=== PATIENT | male | born 1955 | race Caucasian/White ===

== ENCOUNTER → 2016-12-12 | Day surgery (SDC) | payer OTHER ==
[~2016-12-12] VITALS: Ht 177.8 cm; Wt 95.5 kg
[~2016-12-12] MED LIST: ADVA100A INH; CHLORHEXIDINE GLUCONATE 2 % 1 PACK (2 CLOTHS) TOPICAL PRN; DEXAMETHASONE SOD PHOS 4 MG/ML VIAL ONE; FAMOTIDINE 20 MG/2 ML VIAL ONE; FISH1000 PO; HYDR-3516 PO; HYDR-3580 PO; INSULIN HUMAN REGULAR 1,000 UNITS/10 ML VIAL SQ PRN; LACTATED RINGER'S 1000 ML IV PRN; LISI-519 PO; LISI10TA3 PO; METOPROLOL TARTRATE 25 MG TAB PO PRN; MIDAZOLAM HCL 2 MG/2 ML VIAL ONE; POVIDONE IODINE 5% (ANTISEPSIS KIT) 4 APPLICATIONS EACH NARE PRN; PROPOFOL 200 MG/20 ML AMP IV ONE; ROSU10 PO; SODIUM CHLORID 0.9% 500 ML IV PRN; VENTAER INH
[2016-12-12 09:42] VITALS: BP 132/76; PULSE 65; RESP 20; TEMP 96.1; O2SAT 99
--- NOTE | 2016-12-12 15:39 | RADRPT ---
EXAM DATE/TIME: 12/12/2016 08:26 [facility] COMPARISON: No previous studies available for comparison. INDICATIONS : Hip manipulation MEDICAL HISTORY : None. SURGICAL HISTORY : None. ENCOUNTER: Initial ACUITY: 1 day PAIN SCORE: Non-responsive. LOCATION: Right hip FINDINGS: The femoral component of the right total hip replacement does not appear to be centered within the ac etabular component suggesting subluxation/dislocation. Clinical correlation is recommended. There i s a needle adjacent to the superior aspect of the femoral component. CONCLUSION: 1. Femoral component does not appear to be centered in relation to the acetabular component of the to luigi hip replacement suggesting subluxation/dislocation of the femoral component. Clinical correlatio n is recommended. 2. Needle is located adjacent to the superior aspect of the femoral component. 1. Clyde Campbell MD on December 12, 2016 at 15:22 Board Certified Radiologist. This report was verified electronically.
--- NOTE | 2016-12-13 22:35 | MP ---
cc: DAMON TAPIA M.D. DATE OF SURGERY 12/12/2016 PREOPERATIVE DIAGNOSIS Right painful total hip arthroplasty, failed, polyethylene wear total hip arthroplasty. POSTOPERATIVE DIAGNOSIS Right painful total hip arthroplasty, failed, polyethylene wear total hip arthroplasty. PROCEDURE Right hip manipulation, fluoroscopic guidance of needle under anesthesia SURGEON Bisi Tapia MD REHABILITATION CASEWORKER Staff SPECIMEN Right hip synovial fluid sent for to microbiology for gram stain aerobic, anaerobic cultures and sensitivities and fungal smear and culture. CONDITION Stable PLAN OF ACTIVITY Per orders. PROCEDURE The patient brought into the operating room, had satisfactory anesthesia by the Department of Anesthesia. The right hip and lower extremity was prepped and draped in the usual sterile manner. Under fluoroscopic guidance, an 18 gauge spinal needle was introduced in the right hip joint. Approximately 5 cc of clearish type of synovial fluid was aspirated from the hip. The needle was withdrawn. This was sent to microbiology for gram stain, aerobic, anaerobic culture and sensitivity and fungal smear and culture. A band-Aid was placed over the aspiration site. The hip was manipulated under anesthesia. The hip was flexed to 110 degrees, abduction was to 30 degrees. The patient tolerated the procedure well and arrived in the recovery room in stable and satisfactory condition. MD TONY Forde/OLI /8:52 AM /10:24 PM
== END | disposition home or self-care (01) ==
LOC: ESDC 06:26
PROVIDERS: ATTEND Orthopaedic Surgery Orthopaedic Surgery of the Spine
DX: T84.84XA Pain due to internal orthopedic prosthetic devices, implants and grafts, initial encounter (principal); T84.060A Wear of articular bearing surface of internal prosthetic right hip joint, initial encounter; G89.18 Other acute postprocedural pain; Y83.8 Other surgical procedures as the cause of abnormal reaction of the patient, or of later complication, without mention of misadventure at the time of the procedure; I10 Essential (primary) hypertension; E78.5 Hyperlipidemia, unspecified; J45.909 Unspecified asthma, uncomplicated; Z79.51 Long term (current) use of inhaled steroids; Z79.899 Other long term (current) drug therapy
CPT/HCPCS: 01200; 20610; 27275; 73501; 76000; 87070; 87102; 87205; 87206; J1100; J2250; J3010

== ENCOUNTER 2017-04-12 07:30 | Inpatient (IN) | payer OTHER ==
[~2017-04-12] VITALS: Ht 177.8 cm; Wt 96.1 kg
[~2017-04-12 07:30] MED LIST changes: -CHLORHEXIDINE GLUCONATE 2 % 1 PACK (2 CLOTHS) TOPICAL PRN; -DEXAMETHASONE SOD PHOS 4 MG/ML VIAL ONE; -FAMOTIDINE 20 MG/2 ML VIAL ONE; -HYDR-3580 PO; -INSULIN HUMAN REGULAR 1,000 UNITS/10 ML VIAL SQ PRN; -LACTATED RINGER'S 1000 ML IV PRN; -LISI10TA3 PO; -METOPROLOL TARTRATE 25 MG TAB PO PRN; -MIDAZOLAM HCL 2 MG/2 ML VIAL ONE; -POVIDONE IODINE 5% (ANTISEPSIS KIT) 4 APPLICATIONS EACH NARE PRN; -PROPOFOL 200 MG/20 ML AMP IV ONE; -SODIUM CHLORID 0.9% 500 ML IV PRN
[2017-04-18] MEDS ORDERED: FERR240T PO (14:21)
[2017-04-26] MEDS ORDERED: ACETAMINOPHEN 1000 MG/100 ML 100 ML IV ONE ×2 (10:50→12:20)
[2017-04-26] MEDS ORDERED: MIDAZOLAM HCL 2 MG/2 ML VIAL ONE ×2 (10:51→11:45)
[2017-04-26] MEDS ORDERED: MORPHINE SULFATE 4 MG/ML INJ ONE (10:51)
[2017-04-26] MEDS ORDERED: CHLORHEXIDINE GLUCONATE 2 % 1 PACK (2 CLOTHS) TOPICAL PRN (11:00)
[2017-04-26] MEDS ORDERED: POVIDONE IODINE 5% (ANTISEPSIS KIT) 4 APPLICATIONS EACH NARE PRN (11:00)
[2017-04-26] MEDS ORDERED: LACTATED RINGER'S 1000 ML IV PRN (11:00)
[2017-04-26] MEDS ORDERED: SODIUM CHLORID 0.9% 500 ML IV PRN (11:00)
[2017-04-26] MEDS ORDERED: CHLORHEXIDINE GLUCONATE 4% SOLN 120 ML BTL TOPICAL SCH (11:00)
[2017-04-26] MEDS ORDERED: VANCOMYCIN 1000 MG/NS 250 ML (for <70 kg) IV SCH ×2 (11:00)
[2017-04-26] MEDS ORDERED: METOPROLOL TARTRATE 25 MG TAB PO PRN (11:00)
[2017-04-26] MEDS ORDERED: ASPI-516 CHEW (11:20)
[2017-04-26] MEDS ORDERED: GENTAMICIN SULFATE 80 MG/2 ML VIAL ONE (12:03)
[2017-04-26] MEDS ORDERED: FAMOTIDINE 20 MG/2 ML VIAL ONE (12:20)
[2017-04-26] MEDS: ceFAZolin 2 GM PREMIX 50 ML IV SCH ×2 (12:55→13:33)
[2017-04-26] MEDS ORDERED: *morphine SULFATE 10 MG/ML PERIprocedure ONLY ONE ×2 (14:52→15:47)
[2017-04-26] MEDS ORDERED: ACETAMINOPHEN/HYDROcodone 325 MG/7.5 MG TAB PO PRN (15:00)
[2017-04-26] MEDS ORDERED: ZOLPIDEM TARTRATE 5 MG TAB PO PRN (15:00)
[2017-04-26] MEDS ORDERED: ONDANSETRON HCL 4 MG/2 ML VIAL IVP PRN (15:00)
[2017-04-26] MEDS ORDERED: Post-op Orders (for Pharmacy) XX ONE (15:00)
[2017-04-26] MEDS ORDERED: MORPHINE SULFATE 8 MG/ML INJ IV PUSH PRN (15:00)
[2017-04-26] MEDS ORDERED: ALUMINUM/MAGNESIUM/SIMETH 30 ML CUP PO PRN (15:00)
[2017-04-26] MEDS ORDERED: ALBUTEROL SULFATE 90 MCG/ACT HFA 8 GM INHALER INH PRN (15:00)
--- NOTE | 2017-04-26 15:00 | HHI.FF ---
Face to Face Verification Diagnosis: (1) Osteoarthritis of right hip (2) Prosthetic wear following total hip arthroplasty Physical Therapy Gait training, Transfer training, bed to chair Hip: Total hip, Protocol: Right, Posterior hip precautions, Progress to weight bearing Canvas Knee Splint: Other (at night for four weeks ) Right LE Weight Bearing: WB as tolerated Left LE Weight Bearing: WB as tolerated Nursing RN: 3 days/week x 2 weeks Nursing: Dressing changes (clean incision with alcohol and apply dry sterile dressing ) Additional Instructions Aspirin 81 mg BID x 4 weeks dvt prop I have seen patient Constantine Ayala on 04/26/17. My clinical findings support the need for the requested home health care services because: Deconditioned w/ increased weakness I certify that my clinical findings support that this patient is homebound because: Post-op weakness Gary Bennett MD Apr 26, 2017 15:00
--- NOTE | 2017-04-26 15:00 | HHI.PR ---
Immediate Post Op Note Procedure Date: Apr 26, 2017 Pre Op Diagnosis: R Failed THR;S/P R THR 1996 Post Op Diagnosis: Same Surgeon: Gary Bennett MD Debate Director(s): Brandy Rees PA-C Procedure: R Rev THR Complications: None Specimen(s) removed: no Estimated blood loss: 75cc Anesthesia: General Drains: None Patient to: PACU Patient Condition: Good Implant/Devices: SEE IMPLANT LOG (if applicable) Date/Time of Procedure: SEE SURGICAL CARE RECORD Gary Bennett MD Apr 26, 2017 15:00
[2017-04-26] MEDS ORDERED: WALKER WHEELS/F1 MIS (15:01)
[2017-04-26] MEDS ORDERED: *MEPERIDINE 25 MG INJ VIAL PERIprocedural Use ONLY ONE (15:10)
[2017-04-26] MEDS ORDERED: *ONDANSETRON 4 MG VIAL PERIprocedural Use ONLY ONE (15:16)
[2017-04-26] MEDS ORDERED: HYDROmorphone HCL PF 2 MG/ML VIAL ONE (15:59)
[2017-04-26 16:00] VITALS: BP 125/73; PULSE 69; RESP 17; TEMP 95.8; O2SAT 92
--- NOTE | 2017-04-26 16:05 | RADRPT ---
EXAM DATE/TIME: 04/26/2017 15:04 [facility] COMPARISON: HIP RIGHT AP ONLY WO AP PELVIS, December 12, 2016, 8:26. INDICATIONS : Post op MEDICAL HISTORY : None. SURGICAL HISTORY : Total right hip ENCOUNTER: Initial ACUITY: 1 day PAIN SCORE: 10/10 LOCATION: Right hip. FINDINGS: 3 views right hip and pelvis. Total right hip prosthesis in place. Alignment grossly within normal li mits on the AP view. There is lucency about the screw of the acetabular component suggesting motion o f the hardware. CONCLUSION: Right total hip prosthesis. Femoral head component grossly centered with the acetabular component on the AP view. Alignment cannot be well evaluated on the lateral view Sandeep Lane MD on April 26, 2017 at 15:56 Board Certified Radiologist. This report was verified electronically.
[2017-04-26] MEDS ORDERED: DO NOT ADM ANY ANTICOAGULANT DRUGS PRN (16:30)
[2017-04-26] MEDS: ACETAMINOPHEN/HYDROcodone 325 MG/7.5 MG TAB PO PRN ×2 (19:08→23:32)
[2017-04-26 20:00] VITALS: BP 139/84; PULSE 91; RESP 17; TEMP 96.8; O2SAT 6
[2017-04-26] MEDS: ASPIRIN EC 81 MG TABEC PO SCH (20:52)
[2017-04-26] MEDS: BUDESONIDE-FORMOTEROL 80/4.5 MCG INHALER INH SCH (20:58)
[2017-04-26] MEDS ORDERED: NON-FORMULARY DRUG (Omega-3 Fatty Acids (Fish Oil) 1 CAP) PO SCH (21:00)
[2017-04-27] MEDS: LACTATED RINGER'S 1000 ML INJ 1,000 ML IV SCH ×2 (03:21→08:17)
[2017-04-27 04:33] LABS: HEMOGLOBIN 13.9 GM/DL (13.0-17.0)
[2017-04-27] MEDS: ACETAMINOPHEN/HYDROcodone 325 MG/7.5 MG TAB PO PRN ×3 (05:20→14:15)
--- NOTE | 2017-04-27 07:02 | PD.ORT.PN ---
Subjective Subjective Remarks pt doing well, minimal hip pain, ready to be discharged home today Objective Vitals Vital Signs Date Time Temp Pulse Resp B/P (MAP) Pulse Ox O2 Delivery O2 Flow Rate FiO2 04/26/17 20:00 96.8 91 17 139/84 (102) 6 04/26/17 16:00 97.1 63 21 123/70 (87) 98 Nasal Cannula 3 04/26/17 16:00 95.8 69 17 125/73 (90) 92 04/26/17 15:30 52 18 117/60 (79) 97 Nasal Cannula 3 04/26/17 15:15 59 19 95/53 (67) 93 Nasal Cannula 3 04/26/17 15:00 61 17 133/71 (91) 97 Nasal Cannula 3 04/26/17 14:45 97.5 75 17 138/75 (96) 97 Nasal Cannula 3 04/26/17 11:26 97.9 72 18 125/81 (96) 97 I/O 04/26/17 04/26/17 04/26/17 04/27/17 04/27/17 04/27/17 06:59 14:59 22:59 06:59 14:59 22:59 Intake Total 1100 ml 360 ml Output Total 3200 ml 200 ml Balance -2100 ml 160 ml Intake Oral 360 ml IV Total 1100 ml Output Urine Total 200 ml Estimated Blood Loss 200 ml Other 3000 ml # Bowel Movements 0 Result Diagram: 04/27/17 0350 Objective Remarks seen by Dr. Gary Bennett right hip dressing dry and intact +NVI no calf tenderness Assessment & Plan Assessment and Plan POD # 1 s/p R rev ALONSO aspirin 81 mg bid x 2 weeks dvt prop PT-WBAT anticipate discharge home with [facility] today orthopedically stable Brandy Rees Apr 27, 2017 07:02
[2017-04-27 08:00] VITALS: BP 133/81; PULSE 81; RESP 15; TEMP 97.2; O2SAT 93
[2017-04-27] MEDS: ASPIRIN EC 81 MG TABEC PO SCH (08:13)
[2017-04-27] MEDS: BUDESONIDE-FORMOTEROL 80/4.5 MCG INHALER INH SCH (09:00)
[2017-04-27] MEDS ORDERED: FERROUS SULFATE 325 MG (65 MG ELEMENTAL IRON) TAB PO SCH (09:00)
[2017-04-27] MEDS ORDERED: LISINOPRIL 10 MG TAB PO SCH (09:00)
[2017-04-27] MEDS ORDERED: ATORVASTATIN 20 MG TAB PO SCH (09:00)
[2017-04-27 12:00] VITALS: BP 124/73; PULSE 70; RESP 16; TEMP 97.8; O2SAT 94
[2017-04-27] MEDS ORDERED: DOCUSATE SODIUM 100 MG CAP PO SCH (21:00)
--- NOTE | 2017-04-29 09:12 | MP ---
cc: GWEN CATHERINE ALBERT W. M.D. DATE OF SURGERY: 04/29/2017. PREOPERATIVE DIAGNOSIS: 1. His right failed total hip arthroplasty, polyethylene wear. 2. Status post right total hip arthroplasty in 1996, Dr. Yang Torres. POSTOPERATIVE DIAGNOSIS: 1. His right failed total hip arthroplasty, polyethylene wear. 2. Status post right total hip arthroplasty in 1996, Dr. Yang Torres. OPERATIVE PROCEDURE PERFORMED: Right revisional total hip arthroplasty. SURGEON: Gary Bennett MD. IT SERVICE DELIVERY MANAGER: Brandy Rees PA-C. ESTIMATED BLOOD LOSS: 75 cc. ANESTHESIA: General. COMPLICATIONS: None. SPECIMEN: None. CONDITION: Stable. PLAN OF ACTIVITY: Per orders. DESCRIPTION OF THE PROCEDURE IN DETAIL: My patient services assistant, Brandy Rees PA-C, was present for the entire surgical case. She was medically necessary for the entire case because of the complexity of the case and to facilitate the performance of the procedure. The COCOA PRESS OPERATOR was at the back table and was not of the skill set for this case to manipulate the instruments; e.g., the multiple different types of soft tissue retractors, trial prostheses and permanent implants. DESCRIPTION OF THE PROCEDURE IN DETAIL: The patient was brought into the operating room and had satisfactory general endotracheal anesthesia by Dr. Morales from the department of anesthesia. The patient was placed in the lateral decubitus position. All pressure points were well-padded. The hip and lower extremity down to and including the toes was prepped and draped in the usual sterile manner. Posterolateral exposure to the hip was made. Only about a half of the previous incision was utilized from the previous operation but it was through that same exposure site. The scar tissue was surgically excised. A posterolateral exposure was made. The fascia alexander and gluteus olamide was incised in line with the skin incision. A Charnley retractor was placed in the wound in order to allow better exposure. The capsulotomy was performed. The patient was found to have significant polyethylene wear debris. A capsulotomy was performed using multiple blades, rongeurs. Hip was dislocated posteriorly. The patient was found to have polyethylene wear. The patient was found to have solid ingrowth of the femoral component and solid ingrowth of the metallic shell of the acetabular component. The femoral head was removed without difficulty. Further exposure and great care was made to protect all the pressure points and soft tissues and further exposure was made. Polyethylene plastic was removed and this was from a Biomet cup. It was 24 x 28 mm. A trial reduction was made with the 10 degree slope. The patient was found to have excellent stability. The trial component was removed. The true component was then press fit into the metallic shell. The femoral component was revised using a 28 mm ceramic head and a minus 6 neck. This was assembled onto the trunnion. The hip again was reduced. Patient found to have excellent stability of the hip satisfactory fixation of the polyethylene plastic into the metallic cup. The patient had good stability of the hip and no evidence of dislocation with flexion and abduction and adduction and internal rotation up to 60 degrees. The wound was irrigated with copious amounts of sterile saline antibiotic solution. The short externals rotators were re-attached using drill holes using #2 TiCron suture. The fascia alexander and gluteus olamide were closed with #2 TiCron suture and subcutaneous tissues in layers with #0 Vicryl and 2-0 Vicryl. Skin was approximated with a running subcuticular 2-0 nylon. Sterile dressings were applied. The patient tolerated the procedure well and went to the recovery room in stable and satisfactory condition. MD TONY Forde/MURALI /2:42 PM /8:50 AM [facility]
== END 2017-04-27 14:31 | disposition home health service (06) | DRG 468 ==
LOC: HSDI 04-26 09:57 → N06B 04-26 16:23
PROVIDERS: ADMIT Orthopaedic Surgery Orthopaedic Surgery of the Spine; ATTEND Orthopaedic Surgery Orthopaedic Surgery of the Spine
PROC: 0SP90JZ Removal of Synthetic Substitute from Right Hip Joint, Open Approach (ICD-10-PCS; 2017-04-26)
PROC: 0SR904A Replacement of Right Hip Joint with Ceramic on Polyethylene Synthetic Substitute, Uncemented, Open Approach (ICD-10-PCS; principal; 2017-04-26 12:33)
DX: T84.090A Other mechanical complication of internal right hip prosthesis, initial encounter (principal); I10 Essential (primary) hypertension; J44.9 Chronic obstructive pulmonary disease, unspecified; K21.9 Gastro-esophageal reflux disease without esophagitis
CPT/HCPCS: 73501; 85014; 85018; 86850; 86900; 86901; 86920; 94150; C1776; J0131; J0690; J1170; J1580; J2175; J2250; J2270; J2405; J3010; J3370; J7050; J7120; L1830